=== PATIENT | female | born 1950 | race Caucasian/White ===

== ENCOUNTER 2017-02-28 09:50 | Inpatient (IN) | payer OTHER ==
--- NOTE | ~2017-02-28 | DS ---
Discharge Summary [facility] [address] [place]. [address] NAME: NATALIA CANAS : [birth year] STATUS : DIS IN PAT#: [id number] AGE: 66 ADM/REG DATE : 02/28/17 MR#: [id number] REPORT SERV DATE: 03/03/17 DICTATED BY: RONNY MONROE DATE: 03/02/17 REPORT STATUS : Draft TRANSCRIBED BY: MODL DATE: 03/02/17 ADMISSION DATE: 02/28/2017 DISCHARGE DATE: 03/02/2017 CONSULTING PHYSICIAN: Dr. Herrera for GI. Outpatient GI, Dr. Herrera. This is a 66-year-old female, who is going to be discharged with a final diagnoses of: 1. Colitis, acute. 2. Hematochezia secondary to above. 3. History of GERD. DIAGNOSTIC EXAM: CAT scan of the abdomen and pelvis showing mildly thickened appearance of the transverse colon, descending colon, and sigmoid colon, which may be due to under distention. However, there is minimal haziness in the fat adjacent to the splenic flexure in the colon with underlying colitis not excluded. No evidence for abscess or perforation. HOSPITAL COURSE: Please refer to the H and P done by myself dated on 02/28/2017. Briefly, this is a 66-year-old female, who comes in for hematochezia. The patient has been following up with Dr. Gonzalez and was diagnosed with colitis a year ago. The patient woke up on the day of admission with abdominal pain and had some hematochezia. She then went to the emergency room. The patient was then admitted. We monitored her H and H which remained stable. The patient then got a GI consultation where they did a re-colonoscopy and found colitis. They did biopsy, but they do not have the results back yet. The patient is being treated for a possible infectious, but we cannot rule out an ischemic kind. GI cleared the patient for discharge today. The patient is doing much better with decreased abdominal pain and no more hematochezia. So, we will be discharging the patient home with the above diagnosis. She will be on the following medications. Elavil 10 mg at bedtime, vitamin C 500 mg a day, Restasis one drop twice a day, Caltrate plus D 600 mg twice a day, vitamin D 3000 units a day, magnesium oxide 400 mg a day, multivitamin once a day, omega-3 fatty acid 1000 mg a day, Zantac 150 mg twice a day, folic acid one tab three times a week. She will be off her aspirin and hyoscyamine. She can take her probiotics and Tylenol p.r.n. She will be given prescription for Bentyl 20 mg p.o. q.6 hours p.r.n. pain, Levaquin 750 mg p.o. daily for one week, and metronidazole 500 mg t.i.d. for one week. The patient will follow up with her PCP in two weeks' time and follow up with Dr. Abena Tam in two to three weeks. They will need to follow up the pathology. This has been explained to the patient and she agreed and understood the plan. SURESH/ADI Ronny Monroe M.D. Discharge Summary [address] [address] NAME: NATALIA CANAS : [birth year] STATUS : DIS IN PAT#: [id number] AGE: 66 ADM/REG DATE : 02/28/17 MR#: [id number] REPORT SERV DATE: 03/03/17 DICTATED BY: RONNY MONROE DATE: 03/02/17 REPORT STATUS : Draft TRANSCRIBED BY: ADI DATE: 03/02/17 / [id number] CC: Jl Kwok,
--- NOTE | ~2017-02-28 | EGD ---
EGD REPORT [facility] [address] [place] [address] NAME: NATALIA CANAS : 54 STATUS : ADM IN PAT#: [id number] AGE: 66 ADM/REG DATE : 02/28/17 MR#: [id number] REPORT SERV DATE: 03/01/17 DICTATED BY: TAL DOMINGUEZ DATE: 03/01/17 REPORT STATUS : Draft TRANSCRIBED BY: [facility] DATE: 03/01/17 End[facility] Center Patient Name: Natalia Canas Date of : 1950 Attending MD: TAL DOMINGUEZ MD Procedure Date No Time: 03/01/2017 Procedure: Colonoscopy Indications: Hematochezia, Abnormal CT of the GI tract Medicines: Propofol per Anesthesia Complications: No immediate complications. Procedure: Pre-Anesthesia Assessment: - ASA Grade Assessment: II - A patient with mild systemic disease. After I obtained informed consent, the scope was passed under direct vision. Throughout the procedure, the patient's blood pressure, pulse, and oxygen saturations were monitored continuously. The PCF [id number] was introduced through the anus and advanced to the terminal ileum, with identification of the appendiceal orifice and IC valve. The colonoscopy was performed without difficulty. The patient tolerated the procedure well. The quality of the bowel preparation was good. Findings: The perianal and digital rectal examinations were normal. Discontinuous areas of nonbleeding moderately ulcerated mucosa with no stigmata of recent bleeding were present from distal sigmoid to splenic flexure. Biopsies were taken with a cold forceps for histology. The terminal ileum appeared normal. Impression: - Mucosal ulceration c/w left sided colitis - query ischemic vs infectious. Biopsied. - The examined portion of the ileum was normal. Recommendation: - Await pathology results. - F/u stool C.diff study. - Continue antibiotics. Procedure Code(s): --- Professional --- 45194, Colonoscopy, flexible, proximal to splenic flexure; with biopsy, single or multiple Diagnosis Code(s): --- Professional --- K63.3, Ulcer of intestine K92.1, Melena EGD REPORT [facility] [address] [address] NAME: NATALIA CANAS : [birth year] STATUS : ADM IN [facility]#: [id number] AGE: 66 ADM/REG DATE : 02/28/17 MR#: [id number] REPORT SERV DATE: 03/01/17 DICTATED BY: TAL DOMINGUEZ. DATE: 03/01/17 REPORT STATUS : Draft TRANSCRIBED BY: [employer] DATE: 03/01/17 R93.3, Abnormal findings on diagnostic imaging of other parts of digestive tract CPT copyright 2013 [employer]. All rights reserved. The codes documented in this report are preliminary and upon city maintenance manager review may be revised to meet current compliance requirements. TAL DOMINGUEZ MD 03/01/2017 9:55 AM This report has been signed electronically. Number of Addenda: 0 Note Initiated On: 03/01/2017 8:35 AM Scope Withdrawal Time 0 hours 7 minutes 28 seconds [address] [address]
--- NOTE | ~2017-02-28 | CN ---
Consultation Report [facility] [address] [place]. [address] NAME: NATALIA CANAS : [birth year] STATUS : ADM IN [facility]#: [id number] AGE: 66 ADM/REG DATE : 02/28/17 MR#: [id number] REPORT SERV DATE: 03/01/17 DICTATED BY: TAL DOMINGUEZ DATE: 03/01/17 REPORT STATUS : Draft TRANSCRIBED BY: MODL DATE: 03/01/17 GI CONSULTATION DATE OF CONSULTATION: 03/01/2017 REASON FOR CONSULTATION: Colitis. HISTORY OF PRESENT ILLNESS: The patient is a 66-year-old female, who presents with acute onset of cramping, abdominal pain, followed by bloody diarrhea. This occurred in the middle of night when she went to bed that night. She felt fine. She had eaten out at a local restaurant for lunch, but her friend ate the same food and did not have any issues. She has an underlying history of irritable bowel syndrome and lymphocytic colitis, but has been doing well from that stand point. She underwent a colonoscopy in 05/2016, which was essentially unremarkable except for some mild diverticulosis. She had been hemodynamically stable since presentation. CT scan of the emergency room revealed inflammatory changes in the transverse and left colon. She denied any fevers or chills. She denied any nausea or vomiting. She reports no sick contacts. She reports no recent antibiotic exposure. PAST MEDICAL HISTORY: Significant for GERD, fibromyalgia, osteoporosis, hypercholesterolemia, irritable bowel syndrome, history of lymphocytic colitis. SURGERIES: Tonsillectomy, appendectomy, lysis of adhesions. ALLERGIES: VESICARE, LUNESTA. HOME MEDICATIONS: Reviewed. FAMILY HISTORY: No gastrointestinal malignancies. SOCIAL HISTORY: No tobacco, alcohol, or illicit drug use. REVIEW OF SYSTEMS: As in HPI, otherwise currently negative for fevers or myalgias. PHYSICAL EXAMINATION: GENERAL: Well-developed, well nourished female, currently in no acute distress. HEENT: Atraumatic, normocephalic. Anicteric sclerae. NECK: Supple. No lymphadenopathy or JVD. CARDIOVASCULAR: Regular rate and rhythm. No murmurs, rubs, gallops. LUNGS: Clear to auscultation bilaterally. ABDOMEN: Soft. Mild tenderness in the left upper quadrant. Positive bowel sounds. No hepatosplenomegaly. EXTREMITIES: No cyanosis, clubbing, or edema. SKIN: Warm and dry. Consultation Report [facility] [address] [place]. [address] NAME: NATALIA CANAS : [birth year] STATUS : ADM IN [facility]#: [id number] AGE: 66 ADM/REG DATE : 02/28/17 MR#: [id number] REPORT SERV DATE: 03/01/17 DICTATED BY: TAL DOMINGUEZ DATE: 03/01/17 REPORT STATUS : Draft TRANSCRIBED BY: ADI DATE: 03/01/17 NEURO: Alert and oriented x3. LABORATORY DATA: White count 10.4, hemoglobin is 14.2, platelet count 256. Chemistry reveals a BUN of 7, creatinine of 0.7. Normal LFTs. CT shows mildly thickened appearance of the transverse, descending, and sigmoid colon. IMPRESSION AND PLAN: Acute colitis, suspect infectious versus ischemic, favor the former. As such, continue IV fluids, IV antibiotics has already been begun. Follow up stool studies. We will proceed with colonoscopy. KARINA/ADI Tal Dominguez M.D. / [id number] CC: Jl Kwok DO
--- NOTE | ~2017-02-28 | HP ---
History And Physical [place] [id number] [facility] [place]. [address] NAME: NATALIA CANAS : 54 STATUS : ADM IN [facility]#: [id number] AGE: 66 ADM/REG DATE : 02/28/17 MR#: [id number] REPORT SERV DATE: 02/28/17 DICTATED BY: RONNY MONROE DATE: 02/28/17 REPORT STATUS : Draft TRANSCRIBED BY: MODSilvana DATE: 02/28/17 DATE OF ADMISSION: 02/28/2017 GI DOCTOR: Abena Tam M.D. HISTORY OF PRESENT ILLNESS: This is a 66-year-old female who comes in here for bloody stools. The patient was diagnosed with colitis one year ago by Dr. Abena Tam from a colonoscopy. She is not sure what kind of colitis it is. The patient was doing fine until about early this morning when she woke up with abdominal pain. She went to the bathroom, feeling like she is going to move her bowels, but she could not as she was a little bit constipated. Later on, she started having some diarrhea and she said that she went about 10 times this morning. One time that she was moving her bowels, she got into sweats and felt like she was going to faint, but did not. The patient then looked at her last stool, found it to be bloody, and finally decided to come to the emergency room. In the ER, they documented bloody stool and referred the patient for admission. The patient did not have any fever, chills, sweats, except when she was having the bowel movement when she had some diaphoresis. There is no actual syncopal episode. There is no nausea or vomiting. There are no chest pains or shortness of breath. There are no new rashes. REVIEW OF SYSTEMS: Rest of the 14-point review of systems negative except as above. PAST MEDICAL HISTORY: Includes GERD, fibromyalgia, osteoporosis, hypercholesterolemia, tonsillectomy, appendectomy, abdominal adhesions. ALLERGIES: SHE IS ALLERGIC TO VESICARE AND LUNESTA. MEDICATIONS: Include vitamin C, aspirin, biotin, H2 angel, vitamin D, multivitamin, fish oil. FAMILY HISTORY: Dad with NM in his 50s. SOCIAL HISTORY: The patient does not smoke, drink, or use recreational drugs. PHYSICAL EXAMINATION: GENERAL: The patient is alert and oriented x3, not in cardiopulmonary distress. VITAL SIGNS: Include a temperature of 97.9, blood pressure of 153/73, pulse rate of 89, respirations 18, saturating 100% on room air. NECK: She has supple neck. No JVD or carotid bruits. No lymphadenopathy. HEENT: [place] conjunctivae. Anicteric sclerae. No pharyngeal erythema. LUNGS: Clear lungs. No rales. No wheezes. CARDIOVASCULAR: Regular rate and rhythm. No murmurs. ABDOMEN: Positive bowel sounds. Soft. There is tenderness in the left upper quadrant area, minimal on the epigastric and lower quadrant area. No rebound, guarding, or masses. EXTREMITIES: Fair pulses. No edema. NEURO: Nonlocalizing. History And Physical [address] [address] NAME: NATALIA CANAS : 54 STATUS : ADM IN [facility]#: [id number] AGE: 66 ADM/REG DATE : 02/28/17 MR#: [id number] REPORT SERV DATE: 02/28/17 DICTATED BY: RONNY MONROE DATE: 02/28/17 REPORT STATUS : Draft TRANSCRIBED BY: ADI DATE: 02/28/17 LABORATORY DATA: Reveals a chemistry within normal limits. White count of 13.4, H and H of 14.1 and 41.9. PT, PTT, INR are within normal limits. IMAGING: CAT scan of abdomen and pelvis shows mildly thickened appearance of the transverse colon, descending colon, and sigmoid colon, which may be due to underdistention; however, there is minimal haziness in the fat adjacent to the splenic flexure, colitis is not excluded. No abscess or perforation. ASSESSMENT: 1. Hematochezia, likely secondary to colitis. 2. Near syncope. 3. Gastroesophageal reflux disease. PLAN: The patient has history of colitis, but never had hematochezia before. The patient probably had near-syncope secondary to vagal stimulation. However, with her hematochezia, we will need to make sure that this is not secondary to acute blood loss anemia. We will monitor the H and H, check orthostatics, hydrate her, transfuse as necessary. We will place her on a PPI for her history of GERD. We will start antibiotics empirically, check her stool, and we will consult [facility] as she is known to Dr. Abena Tam. They might give us some light on what kind of colitis she had before and what this might be now. This has been explained to the patient in front of the . They agreed and understood the plan. SURESH/ADI Ronny Monroe M.D. / [id number] CC: Jl Kwok, DO
[~2017-02-28 09:50] MED LIST: BIOTIN10 MG PO; CALTRA600D PO; FISH-EPA1000 MG PO; FLORASTOR250 MG PO; FOLINIC PLUS PO; HALF81 PO; MAGOX4 PO; OCEAN NAS; PEPCID40 MG PO; PRILO PO; REST15 PO; RESTASIS OPH; THERGRANM PO; VITAMIN D31000 UNIT PO; VITC500 PO
[2017-02-28 10:04] LABS: BASOPHILS 0.1 %; BASOPHILS ABSOLUTE 0.01 10/3/uL (0.0-0.16); EOSINOPHILS 0 %; ER CBC TAT 0 Hrs 05 Mins; HEMATOCRIT 41.9 % (36.0-48.0); HEMOGLOBIN 14.1 g/dL (12.0-16.0); IMMATURE GRANULOCYTES 0.3 %; IMMATURE GRANULOCYTES ABSOLUTE 0.04 10/3/uL (0.0-0.11); LYMPHOCYTES 4.3 %; LYMPHOCYTES ABSOLUTE 0.58 10/3/uL (0.67-4.30); MANUAL DIFF NO %; MEAN CORPUS HGB CONC 33.7 g/dL (32.0-36.0); MEAN CORPUSCULAR HEMOGLOB 31.5 pg (26.0-34.0); MEAN CORPUSCULAR VOLUME 93.5 fL (80-100); MEAN PLATELET VOLUME 11.4 fL (9.2-13.0); MONOCYTES 8.2 %; NEUTROPHILS 87.1 %; NEUTROPHILS ABSOLUTE 11.71 10/3/uL (2.02-8.40); PLATELET COUNT 262 10/3/uL (150-400); RBC DISTRIBUTION WIDTH 14.1 % (12.0-16.0); RED CELL COUNT 4.48 10/6/uL (4.0-5.6); WHITE BLOOD CELLS 13.4 10/3/uL (4.5-10.5)
[2017-02-28 10:11] LABS: INTERNATIONAL NORMAL RATI 0.9 UNITS (-); PARTIAL THROMBO TIME 27.5 SEC (22.5-37.2)
[2017-02-28 10:20] LABS: A/G RATIO 0.9 (0.7-1.9); ALBUMIN 3.8 G/DL (3.5-5.0); CALCIUM, SERUM 9.6 MG/DL (8.5-10.4); CHLORIDE, SERUM 106 MMOL/L (96-112); CO2 (CARBON DIOXIDE) 27 MMOL/L (24-34); CREATININE 0.86 MG/DL (0.55-1.02); GFR AFRICAN AMERICAN 83 ML/MIN (>=60); GFR NON AFRICAN AMERICAN 71 ML/MIN (>=60); GLOBULIN 4.1 G/DL (2.5-4.1); POTASSIUM, SERUM 4.1 MMOL/L (3.5-5.3); SGOT(AST) 22 U/L (5-40); SGPT(ALT) 31 U/L (5-65); SODIUM, SERUM 138 MMOL/L (135-148); TOTAL BILIRUBIN 0.5 MG/DL (0-1.2); TOTAL PROTEIN 7.9 G/DL (6.0-8.5)
[2017-02-28 10:22] LABS: ALKALINE PHOSPHATASE 117 U/L (45-117); BUN (BLOOD UREA NITROGEN) 22 MG/DL (6-23); GLUCOSE, SERUM 127 MG/DL (60-99)
[2017-02-28] MEDS ORDERED: AMIT10 PO (11:31)
[2017-02-28] MEDS ORDERED: RESTASIS OPH (11:32)
[2017-02-28] MEDS ORDERED: ZANTAC 150 PO (11:33)
[2017-02-28] MEDS ORDERED: [UNRECOGNIZED DRUG - OTHER] PO (11:34)
[2017-02-28] MEDS ORDERED: ASAB PO (11:34)
[2017-02-28] MEDS ORDERED: LEVSINTAB PO (11:35)
[2017-02-28] MEDS ORDERED: MULTIVIT/MIN PO (11:35)
[2017-02-28] MEDS ORDERED: FISH-EPA1000 MG PO (11:36)
[2017-02-28] MEDS ORDERED: CALTRA600D PO (11:36)
[2017-02-28] MEDS ORDERED: MAGOX4 PO (11:36)
[2017-02-28] MEDS ORDERED: PROBIOTIC PO (11:36)
[2017-02-28] MEDS ORDERED: [UNRECOGNIZED DRUG - OTHER] PO (11:37)
[2017-02-28] MEDS ORDERED: VITC500 PO (11:37)
[2017-02-28] MEDS ORDERED: BIOTIN10 MG PO (11:37)
[2017-02-28] MEDS ORDERED: VITAMIN D31000 UNIT PO (11:37)
[2017-02-28] MEDS ORDERED: BILBERRY100 MG PO (11:38)
[2017-02-28] MEDS ORDERED: EYE VITAMIN PO (11:40)
[2017-02-28] MEDS ORDERED: TYLENOL PO (11:42)
[2017-02-28] MEDS ORDERED: GENTEAL OPH (11:42)
[2017-02-28] MEDS ORDERED: GENTEA2 OPH (11:43)
[2017-03-01 06:51] LABS: BASOPHILS 0.3 %; BASOPHILS ABSOLUTE 0.03 10/3/uL (0.0-0.16); EOSINOPHILS 0.1 %; EOSINOPHILS ABSOLUTE 0.01 10/3/uL (0.0-0.53); HEMATOCRIT 42.4 % (36.0-48.0); HEMOGLOBIN 14.2 g/dL (12.0-16.0); IMMATURE GRANULOCYTES 0.2 %; IMMATURE GRANULOCYTES ABSOLUTE 0.02 10/3/uL (0.0-0.11); LYMPHOCYTES 14.1 %; LYMPHOCYTES ABSOLUTE 1.47 10/3/uL (0.67-4.30); MEAN CORPUS HGB CONC 33.5 g/dL (32.0-36.0); MEAN CORPUSCULAR HEMOGLOB 31.1 pg (26.0-34.0); MEAN CORPUSCULAR VOLUME 92.8 fL (80-100); MEAN PLATELET VOLUME 11.6 fL (9.2-13.0); MONOCYTES 12.2 %; MONOCYTES ABSOLUTE 1.27 10/3/uL (0.21-1.20); NEUTROPHILS 73.1 %; NEUTROPHILS ABSOLUTE 7.64 10/3/uL (2.02-8.40); PLATELET COUNT 256 10/3/uL (150-400); RBC DISTRIBUTION WIDTH 14.3 % (12.0-16.0); RED CELL COUNT 4.57 10/6/uL (4.0-5.6); WHITE BLOOD CELLS 10.4 10/3/uL (4.5-10.5)
[2017-03-01 06:52] LABS: MANUAL DIFF NO %
[2017-03-01 07:07] LABS: BUN (BLOOD UREA NITROGEN) 7 MG/DL (6-23); CALCIUM, SERUM 9.1 MG/DL (8.5-10.4); CHLORIDE, SERUM 115 MMOL/L (96-112); CO2 (CARBON DIOXIDE) 19 MMOL/L (24-34); GFR AFRICAN AMERICAN 106 ML/MIN (>=60); GFR NON AFRICAN AMERICAN 92 ML/MIN (>=60); GLUCOSE, SERUM 133 MG/DL (60-99); POTASSIUM, SERUM 4.9 MMOL/L (3.5-5.3); SODIUM, SERUM 143 MMOL/L (135-148)
[2017-03-02 04:57] LABS: BASOPHILS 0.6 %; BASOPHILS ABSOLUTE 0.04 10/3/uL (0.0-0.16); EOSINOPHILS ABSOLUTE 0.13 10/3/uL (0.0-0.53); HEMATOCRIT 36.2 % (36.0-48.0); IMMATURE GRANULOCYTES 0.2 %; IMMATURE GRANULOCYTES ABSOLUTE 0.01 10/3/uL (0.0-0.11); LYMPHOCYTES 32.3 %; LYMPHOCYTES ABSOLUTE 2.13 10/3/uL (0.67-4.30); MANUAL DIFF NO %; MEAN CORPUS HGB CONC 33.1 g/dL (32.0-36.0); MEAN CORPUSCULAR HEMOGLOB 31.2 pg (26.0-34.0); MEAN PLATELET VOLUME 11.1 fL (9.2-13.0); MONOCYTES 10.8 %; MONOCYTES ABSOLUTE 0.71 10/3/uL (0.21-1.20); NEUTROPHILS 54.1 %; NEUTROPHILS ABSOLUTE 3.58 10/3/uL (2.02-8.40); PLATELET COUNT 249 10/3/uL (150-400); RBC DISTRIBUTION WIDTH 14.5 % (12.0-16.0); RED CELL COUNT 3.85 10/6/uL (4.0-5.6); WHITE BLOOD CELLS 6.6 10/3/uL (4.5-10.5)
[2017-03-02] MEDS ORDERED: BENTYL20 PO (15:22)
[2017-03-02] MEDS ORDERED: LEVAQUIN750 MG PO (15:22)
[2017-03-02] MEDS ORDERED: FLAG500TAB PO (15:23)
== END 2017-03-02 19:04 | disposition home or self-care (01) | DRG 392 ==
LOC: ER 09:50 → 5NO 14:18
PROVIDERS: Emergency Medicine; Internal Medicine; Internal Medicine Gastroenterology
PROC: 0DBN8ZX Excision of Sigmoid Colon, Via Natural or Artificial Opening Endoscopic, Diagnostic (ICD-10-PCS; principal; 2017-03-01 09:37)
DX: K52.9 Noninfective gastroenteritis and colitis, unspecified (principal); K21.9 Gastro-esophageal reflux disease without esophagitis; M79.7 Fibromyalgia; E78.00 Pure hypercholesterolemia, unspecified
CPT/HCPCS: 74176; 80048; 80053; 82272; 82962; 85025; 85610; 85730; 87045; 87046; 87046-59; 87493; 87493-59; 87899; 87899-59; 88305; 89055; 93005; 99285; A9270-GY; C9113; J1956